=== PATIENT | male | born 1945 | race Caucasian/White ===

== ENCOUNTER → 2019-01-11 | Day surgery (SDC) | payer MEDICARE ==
[2018-12-31 15:23] LABS: BASOPHILS % 0.3 % (0.0-1.0); EOSINOPHILS % 0.2 % (0.0-6.0); HEMATOCRIT 40.7 % (38.2-49.6); HEMOGLOBIN 13.7 g/dL (14.0-18.0); LYMPHOCYTES # (AUTO) 1.4 (1.0-3.2); LYMPHOCYTES % 24.3 % (18.0-39.1); MEAN CORPUSCULAR HEMOGLOBIN 30.2 pg (28-32); MEAN CORPUSCULAR HGB CONC 33.7 g/dL (31-35); MEAN CORPUSCULAR VOLUME 89.6 fL (81-99); MONOCYTES # (AUTO) 0.3 (0.2-0.8); MONOCYTES % 4.6 % (4.4-11.3); NEUTROPHILS # (AUTO) 4.1 (2.1-6.9); NEUTROPHILS % 69.7 % (38.7-80.0); PLATELET COUNT 235 x10e3/uL (140-360); RED BLOOD COUNT 4.54 x10e6/uL (4.3-5.7); RED CELL DISTRIBUTION WIDTH 13.2 % (11.7-14.4)
[~2019-01-11] MED LIST: ASPIRIN325 MG PO; AZOPT10 ML OU; HYOSCYAMINE 0.125 MG TAB ONE; ISTALOL2.5 ML OU; LATANOPROST OU; LIDOCAINE HCL 2% LOCAL INJ 5 ML SDV VIAL INJ ONE; LISINOPRIL10 MG PO; LUMIGAN2.5 M1 OU; METHAZOLAMIDE25 MG PO; MIDAZOLAM HCL 2 MG/2 ML VIAL ONE; PREDNISONE20 MG PO; PROPOFOL IV EMULSION 10 MG/ML 20 ML VIAL ONE; REFRESH TEARS15 ML OU; RESTASIS1 EACH OU; VITAMIN D400 UNIT PO; [UNRECOGNIZED DRUG - OTHER] OU
--- OUTSIDE RECORDS SUMMARY | 2019-01-11 10:59 | XMS REPORT | Summary of Care ---
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 Active Lisinopril-hydroCHLOROthiazide 20-25 MG Oral Tablet * Refills: 0 M.A. Active Sertraline HCl - 50 MG Oral Tablet TAKE 1 TABLET DAILY. * Refills: 0 M.A. Active Ergocalciferol 10972 UNIT Oral Capsule TAKE 1 CAPSULE WEEKLY * Refills: 2 M.A. Active Melatonin 5 MG Oral Capsule TAKE 1 CAPSULE BEDTIME * Refills: 0 M.A. Active Latanoprost SOLN * Refills: 0 M.A. Active Timolide TABS TAKE 1 TABLET TWICE DAILY * Refills: 0 M.A. Active Rhopressa 0.02 % Ophthalmic Solution * Refills: 0 M.A. Active Restasis 0.05 % Ophthalmic Emulsion * Refills: 0 M.A. Active Lubricant Drops SOLN * Refills: 0 M.A. Active Humira 40 MG/0.8ML KIT * Refills: 0 M.A. Active Prednicarbate OINT * Refills: 0 M.A. Active Allergies and Adverse Reactions Name Dates Details Brimonidine Tartrate SOLN (Allergy) Status: Active Past Medical History Name Dates Details History of anxiety (V11.8, Z86.59) Status: Resolved History of glaucoma (V12.49, Z86.69) Status: Resolved History of hypertension (V12.59, Z86.79) Status: Resolved Procedures Procedure Dates Details [QLH] CARDIOLIPIN AB (IGA,IGG,IGM) Date: 11-Sep-2018 [QL] BETA 2 GLYCOPROTEIN I AB (IGG,IGA,IGM) Date: 11-Sep-2018 [QL] Lupus Anticoagulant Panel Date: 11-Sep-2018 [QL] DNA (DS) ANTIBODY Date: 11-Sep-2018 History of Cholecystectomy Completed History of Endarterectomy Carotid Artery Completed Immunization Name Dates Details Immunizations not documented Social History Name Dates Details - Status: Name Dates Details Never smoker Vital Signs Date Test Result Details No Known Vitals to report Results Date Description Value Details 18-Sep-20189:46 [QL] BETA 2 GLYCOPROTEIN I AB (IGG,IGA,IGM) B2 GLYCOPROTEIN I (IGG)AB <9 {SGU} Range: < OR=20 B2 GLYCOPROTEIN I (IGM)AB <9 {SMU} Range: < OR=20 B2 GLYCOPROTEIN I AB (IGA)AB <9 {MAGGIE} Range: < OR=20 Comments: The antiphospholipid antibody syndrome (APS) johan clinical-pathologic correlation that includesa clinical event (e.g. thrombosis, pregnancyloss, thrombocytopenia) and persistent positiveantiphospholipid antibodies (IgM or IgG MARK>40 MPL/GPL,IgM or IgG anti-b2GPI antibodies ora lupus anticoagulant). International consensusguidelines for APS suggest waiting at least 12weeks before retesting to confirm antibodypersistence. The [facility] immunologicalclassification criteria for systemic lupuserythematosus (SLE) include testing for isotypeIgA, which has yet to be incorporated into APScriteria. Low level antiphospholipid antibodiesmay sometimes be detected in the setting ofinfection, drug therapy or aging. :46 [[facility]] DNA (DS) ANTIBODY DNA (DS) ANTIBODY 2 {IU/ml} (Normal) Comments: IU/mL Interpretation < or=4 Negative 5-9 Indeterminate > or=10 Positive :46 [[facility]] CARDIOLIPIN AB (IGA,IGG,IGM) Comments: Value Interpretation ----- < or=14 Negative 15 - 20 Indeterminate 21 - 80 Low to Medium Positive >80 High Positive CARDIOLIPIN AB(IGA) <11 {APL} (Normal) Comments: Value Interpretation ----- < or=11 Negative 12 - 20 Indeterminate 21 - 80 Low to Medium Positive >80 High Positive CARDIOLIPIN AB (IGG) <14 {GPL} (Normal) Comments: Value Interpretation ----- < or=14 Negative 15 - 20 Indeterminate 21 - 80 Low to Medium Positive >80 High Positive CARDIOLIPIN AB (IGM) 35 {MPL} (Above high threshold) Comments: Value Interpretation ----- < or=12 Negative 13 - 20 Indeterminate 21 - 80 Low to Medium Positive >80 High Positive The antiphospholipid antibody syndrome (APS) is a clinical-pathologic correlation that includes a clinical event (e.g. thrombosis, loss, thrombocytopenia) and persistent positive antiphospholipid antibodies (IgM or IgG MARK >40 MPL/GPL, IgM or IgG anti-t0IMGvehviusuxl or a lupus anticoagulant). International consensus guidelines for APS suggest waiting at least 12 weeks before retesting to confirm antibody persistence. The [facility] immunological classification criteria for systemic lupus erythematosus (SLE) include testing for isotype IgA, which has yet to be incorporated into APS criteria. Low level antiphospholipid antibodies may sometimes be detected in the setting of infection, drug therapy or aging. :46 [Q] HEXAGONAL PHASE CONFIRM HEXAGONAL PHASE CONFIRM WEAKLY POSITIVE (Abnormal) Range: NEGATIVE :46 [Q] THROMBIN CLOTTING TIME THROMBIN CLOTTING TIME 17 {sec} Range: 13-19 :46 [QLH] Lupus Anticoagulant Panel Comments: For more information on this test, go to:http://education.Ozsale/faq/JBN09y5(This link is being provided for informational/educationalpurposes only.)REPORT COMMENT:FASTING:YES LUPUS ANTICOAGULANT SEE NOTE Range: NOT DETECTED Comments: A Lupus Anticoagulant is detected since one of the twoconfirmatory tests is positive. Lupus Anticoagulants (LA) may be associated with thromboticevents, recurrent , or may be asymptomatic. Ableeding history requires other coagulopathies be excluded.Since LA may be transient, international consensusguidelines suggest waiting at least 12 weeks beforeretesting to confirm antibody persistence. (J Thromb Widmssc4083: 4; 295). NOTE: Direct oral anticoagulant therapy may cause falsepositive results This interpretation is basedon the following test results: PTT-LA SCREEN 41 {SECONDS} (Above high threshold) Range: < OR=40 Comments: For more information on this test, go to:http://education.Ozsale/faq/IBS59l2(This link is being provided for informational/educationalpurposes only.) DRVVT SCREEN 39 {SECONDS} Range: < OR=45 Plan of Care Name Dates Details Planned Observations Planned Goals not documented Interventions Provided Discussion/Summary* Mr. Laura, * You have a positive lupus anticoagulant which can predispose you to blood clots. I discussed this with Dr. Martínez and she does not think blood clots are the problem in your eye. At this time, no treatment is recommended since you do not have recurrent blood clots in legs or lungs (DVTs or PEs). * Hardeep Khoury MD Instructions Name Dates Details Instructions not documented Encounters Appointment; HARDEEP KHOURY M.D. Encounter Diagnosis: Problem not documented On: 11-Sep-2018 14:00
--- NOTE | 2019-01-11 23:47 | Operative Report ---
DATE OF PROCEDURE: 01/11/2019 SURGEON: Didier Thomason MD PROCEDURES: Colonoscopy with polypectomy. INDICATIONS FOR COLONOSCOPY: Surveillance colonoscopy, personal history of colon polyps. MEDICATIONS: The patient was done under MAC. Please see anesthesiologist's note. PROCEDURE IN DETAIL: With the patient in left lateral decubitus position, flexible fiberoptic Olympus colonoscope was inserted into the rectum with ease and advanced all the way to the cecum. Diverticular disease was noted to be scattered throughout. The scope was then withdrawn slowly, whatever was visualized. Mucosa overlying the cecum appeared to be within normal limits. Some minimal diverticulosis was noted in the ascending colon. Two polyps were hot biopsied from the transverse colon. Polypectomy site was hemoclipped. Some diverticular disease was noted in the descending colon. One polyp was hot biopsied from the sigmoid colon. One polyp was hot snared from the rectum. The scope was then retroflexed into the distal rectum and small internal hemorrhoids were noted, none of which was actively bleeding. The scope was then straightened out. It was subsequently withdrawn. The patient tolerated the procedure well. IMPRESSION: 1. Diverticulosis. 2. Repeat transverse colon polyps x2, hot biopsied, one polypectomy site hemoclipped. 3. Sigmoid colon polyp, hot biopsied. 4. Rectal polyp, hot snared. 5. Internal hemorrhoids, none actively bleeding. PLAN: Follow up histology. Initiate high-fiber, low-fat diet. Initiate high-fiber supplement. The patient might benefit from a followup colonoscopy in 5 years. Didier Thomason MD [facility] [place] /[id number] cc: Parth Kauffman MD
== END | disposition home or self-care (01) ==
LOC: OR 10:56
PROVIDERS: ATTEND Internal Medicine Gastroenterology
DX: Z12.11 Encounter for screening for malignant neoplasm of colon (principal); Z86.010 Personal history of colon polyps; K57.30 Diverticulosis of large intestine without perforation or abscess without bleeding; K63.5 Polyp of colon; K64.8 Other hemorrhoids; I10 Essential (primary) hypertension; Z68.32 Body mass index [BMI] 32.0-32.9, adult; Z80.0 Family history of malignant neoplasm of digestive organs; Z80.9 Family history of malignant neoplasm, unspecified; N40.0 Benign prostatic hyperplasia without lower urinary tract symptoms; I73.9 Peripheral vascular disease, unspecified; D12.8 Benign neoplasm of rectum
CPT/HCPCS: 36415; 45384; 45385; 85025; 88305; 93005; J2001; J2250; J2704; 45378

== ENCOUNTER 2023-07-16 08:05 | Outpatient (RCR) | payer MEDICARE ==
[~2023-07-16 08:05] MED LIST changes: +B12; +CETIRIZINE HCL10 M1; +CRESTOR10 MG PO; +FLOMAX0.4 MG PO; +FLUOXETINE DR90 MG; -HYOSCYAMINE 0.125 MG TAB ONE; -LIDOCAINE HCL 2% LOCAL INJ 5 ML SDV VIAL INJ ONE; +LISINOPRIL-HCT1 EACH PO; -MIDAZOLAM HCL 2 MG/2 ML VIAL ONE; -PROPOFOL IV EMULSION 10 MG/ML 20 ML VIAL ONE
== END 2023-08-12 ==
LOC: PT 08:05
PROVIDERS: ATTEND Otolaryngology
DX: H81.10 Benign paroxysmal vertigo, unspecified ear (principal); R26.81 Unsteadiness on feet